=== PATIENT | female | born 1935 | race Caucasian/White ===

== ENCOUNTER 2017-01-04 21:00 | Emergency (ER) | payer MEDICARE ==
[2014-12-07 12:16] VITALS: BMI 27.1
[~2017-01-04 21:00] MED LIST: ALLERGY INJ; ASPIRIN81 MG PO; CORDARONE200 MG PO; COSOPT EYE DROPS5 ML EACH EYE; ILEVRO; LASIX40 MG PO; LOPRESSOR25 MG PO; LUMIGAN 0.01%2.5 ML EACH EYE; LUMIGAN 0.01%2.5 ML RIGHT EYE; NORVASC10 MG PO; NORVASC5 MG PO; OMNIPRED5 ML RIGHT EYE; XALATAN 0.0052.5 ML EACH EYE
[2017-01-05 00:26] LABS: APPEARANCE HAZY (CLEAR); BILIRUBIN NEGATIVE (NEGATIVE); COLOR RED (YELLOW); GLUCOSE NEGATIVE (NEGATIVE); KETONE NEGATIVE (NEGATIVE); LEUKOCYTE ESTERASE TRACE (NEGATIVE); NITRITE NEGATIVE (NEGATIVE); PROTEIN 2+ mg/dL (NEGATIVE); SPECIFIC GRAVITY 1.005 (1.005-1.020); UROBILINOGEN NORMAL (NORMAL)
[2017-01-05 00:28] LABS: WHITE CELLS - URINE 25-50 /hpf (0-5)
[2017-01-05 00:29] LABS: BACTERIA FEW /hpf (NONE SEEN); EPITHELIAL CELLS 0-5 /hpf (0-5); RED CELLS - URINE >50 /hpf (0-5)
== END 2017-01-05 01:20 | disposition home or self-care (01) ==
LOC: D.ER 21:00
PROVIDERS: Emergency Medicine
DX: R30.0 Dysuria (principal); N39.0 Urinary tract infection, site not specified

== ENCOUNTER → 2019-11-17 12:01 | Outpatient (CLI) | payer MEDICARE, OTHER ==
[2014-12-07 12:16] VITALS: BMI 27.1
== END | disposition home or self-care (01) ==
LOC: D.HCCECHO 12:01
PROVIDERS: ATTEND Internal Medicine Cardiovascular Disease
DX: I35.0 Nonrheumatic aortic (valve) stenosis (principal)